=== PATIENT | male | born 1980 | race Caucasian/White ===

== ENCOUNTER 2016-05-14 20:28 | Emergency (ER) | payer MEDICAID, OTHER ==
[2016-05-14 23:16] LABS: ABSOLUTE NEUTROPHIL COUNT 8.2 K/mm3 (1.8-7.7); BASO # 0.1 K/mm3 (0.0-0.2); BASO % 0.6 % (0.2-1.0); EOS # 0.2 (0.0-0.5); EOS % 1.9 % (0.9-2.9); HEMATOCRIT 40.4 % (32.0-52.0); HEMOGLOBIN 13.8 gm/l (14.0-18.0); IMM NEUT% 0.2 % (0-1); LYMPH # 3.4 (1.0-4.8); LYMPH % 27.1 % (15-45); MEAN CELL VOLUME 85.1 fl (80.0-94.0); MEAN CORPUSCULAR HEMOGLOBIN 29.1 pg (27.0-31.0); MEAN CORPUSCULAR HGB CONC 34.2 g/dl (33.0-37.0); MEAN PLATELET VOLUME 8.5 fl (7.4-10.4); MONO # 0.6 (0.0-0.8); MONO % 4.4 % (4-12); NEUT % 65.8 % (43-75); PLATELET COUNT 343 K/mm3 (130-400); RED CELL DISTRIBUTION WIDTH 12.7 % (11.5-14.5)
[2016-05-14] MEDS ORDERED: MAALOX/LIDO2%VISC/SIMETHICONE 40 ML BOT ONE (23:18)
[2016-05-14] MEDS ORDERED: ONDANSETRON 4 MG/2ML 2 ML VIAL ONE (23:19)
[2016-05-14 23:27] LABS: ALB/GLOB RATIO 1.7 (>1.0); ALBUMIN 4.5 gm/dL (3.5-5.7); CALCIUM 9.4 mg/dL (8.6-10.3)
[2016-05-14 23:41] LABS: SPECIFIC GRAVITY 1.015 (1.001-1.030); URINE BILIRUBIN NEGATIVE (NEGATIVE); URINE BLOOD NEGATIVE (NEGATIVE); URINE GLUCOSE (UA) NEGATIVE (NEGATIVE); URINE LEUKOCYTE ESTERASE NEGATIVE (NEGATIVE); URINE NITRITE NEGATIVE (NEGATIVE); URINE PROTEIN NEGATIVE (NEGATIVE); URINE UROBILINOGEN NORMAL (0-1 mg/dl)
[2016-05-14 23:42] LABS: URINE APPEARANCE CLEAR; URINE COLOR YELLOW
[2016-05-15] MEDS ORDERED: PANTOPRAZOLE 40 MG TABLET DR PO ONE (00:21)
--- NOTE | 2016-05-15 07:52 | US ---
LIMITED ABDOMINAL ULTRASOUND HISTORY: Epigastric pain x2 weeks. Limited sonography of the right upper quadrant performed. FINDINGS: GALLBLADDER LENGTH: 6.6 cm. GALLBLADDER WALL THICKNESS: 2 mm. GALLBLADDER CONTENT: No stones or sludge identified. SONOGRAPHIC FORRESTER'S SIGN: Not elicited. COMMON BILE DUCT CALIBER: 4 mm. REGIONAL FREE FLUID: None. IMPRESSION: Normal sonographic appearance of the gallbladder. No findings of cholelithiasis, wall thickening, or biliary dilatation. Preliminary report relayed to the Emergency Medicine medical service by Dr. Watts on 05/14/2016 at 2358 hours.
== END 2016-05-15 00:42 | disposition home or self-care (01) ==
LOC: ED 20:28
DX: R10.13 Epigastric pain (principal); R11.0 Nausea
CPT/HCPCS: 83690; 85025; 80053; 81003; 76705; 99283 ×2; 96374; A9270 ×2; J2405